=== PATIENT | male | born 1970 | race Caucasian/White ===

== ENCOUNTER 2019-08-02 06:24 | Inpatient (IN) | payer MEDICARE ==
[~2019-08-02] VITALS: Ht 180.3 cm; Wt 62.0 kg
[2019-08-02 07:28] LABS: Basophils # (auto) 0 10 ^3/uL (0-0.2); Eosinophils # (auto) 0 10 ^3/uL (0-0.8)
[2019-08-02] MEDS ORDERED: SODIUM CHLORIDE 0.9% 1,000 ML IV ONE ×2 (07:28)
[2019-08-02] MEDS ORDERED: ONDANSETRON HCL 4 MG/2 ML VIAL IV ONE ×2 (07:30→07:45)
[2019-08-02] MEDS ORDERED: PANTOPRAZOLE 40 MG/10 ML VIAL INJ IV ONE (07:30)
[2019-08-02 07:32] LABS: Basophils % (auto) 0.1 % (0.0-2.0); Lymphocytes # (auto) 0.5 10 ^3/uL (0.4-5.4); Lymphocytes % (auto) 2.6 % (10.0-50.0); Mean Corpuscular Hemoglobin 31.2 pg (28.0-32.0); Mean Corpuscular Hgb Conc. 34.2 g/dL (32.0-36.0); Mean Corpuscular Volume 91.2 fL (80.0-100.0); Monocytes # (auto) 0.9 10 ^3/uL (0-1.3); Monocytes % (auto) 4.8 % (0.0-12.0); Neutrophils # (auto) 17.7 10 ^3/uL (1.6-8.6); Neutrophils % (auto) 92.5 % (37.0-80.0); Nucleated Red Blood Cells % 1.4 %; Platelet Count (auto) 293 10^3/uL (140-450); Red Blood Cells 6.96 10^6/uL (4.5-5.90); Red Cell Distribution Width 12.6 % (11.8-14.3); White Blood Cell 19.1 10^3/uL (4.4-10.8)
[2019-08-02] MEDS ORDERED: ONDANSETRON HCL 4 MG/2 ML VIAL ONE (07:37)
[2019-08-02 07:41] LABS: Hematocrit 63.5 % (41.0-53.0)
[2019-08-02 07:43] LABS: Hemoglobin 21.7 g/dL (13.5-17.5)
[2019-08-02 07:48] LABS: Albumin 4.7 g/dL (3.4-5.0); Calcium 10.1 mg/dL (8.5-10.1); Potassium 3.3 mmol/L (3.5-5.1)
[2019-08-02 07:54] LABS: BUN/Creatinine Ratio 19.8; Bilirubin, Total 3.3 mg/dL (0.2-1.0); Total Protein 10.1 g/dL (6.4-8.2)
[2019-08-02] MEDS ORDERED: PIPERACILLIN-TAZOB 3.375GM 100 ML IV ONE (08:30)
[2019-08-02] MEDS ORDERED: SODIUM CHLORIDE 0.9% 2,200 ML IV ONE (08:45)
[2019-08-02 09:12] LABS: Lactic Acid w/Reflex 6.1 mmol/L (0.4-2.0)
[2019-08-02] MEDS ORDERED: ALBUTEROL SULF 2.5 MG/0.5ML(0.5%) NEB SOLN NEB ONE (09:15)
[2019-08-02] MEDS ORDERED: IPRATROPIUM BROM 0.5 MG/2.5ML INH SOL NEB ONE (09:15)
[2019-08-02] MEDS ORDERED: GASTROGRAFIN 120 ML SOL ONE (09:19)
[2019-08-02 11:39] LABS: Urine Bacteria NONE SEEN /hpf (None Seen); Urine Blood 1+ /uL (Negative); Urine Hyaline Cast MANY /lpf (0 - 2); Urine Mucus FEW (None Seen); Urine Specific Gravity 1.014 (1.001-1.035); Urine WBC 6 /hpf (0 - 3)
[2019-08-02] MEDS ORDERED: cefTRIAXone 1GM/50ML D5W 50 ML IV ONE (13:00)
[2019-08-02] MEDS ORDERED: ALBUTEROL SULF 2.5 MG/0.5ML(0.5%) NEB SOLN NEB PRN (13:00)
[2019-08-02] MEDS ORDERED: PROMETHAZINE HCL 25 MG/ML 1ML IV PRN (13:00)
[2019-08-02] MEDS ORDERED: MORPHINE SULF INJ 2 MG/ML SYRINGE 1ML IV PRN ×3 (13:00)
[2019-08-02] MEDS ORDERED: DEXTROSE (50%) 50ML SYRG IV PRN (13:00)
[2019-08-02] MEDS ORDERED: NITROGLYCERIN 0.4 MG SL TAB SL PRN (13:00)
[2019-08-02] MEDS ORDERED: OSELTAMIVIR 75 MG CAP PO ONE (13:00)
[2019-08-02] MEDS: SODIUM CHLORIDE 0.9% 1,000 ML IV SCH ×2 (14:10→22:48)
[2019-08-02] MEDS: FAMOTIDINE (10MG/ML) 2ML VL IV SCH (16:00)
[2019-08-02 16:11] LABS: Amylase 135 U/L (25-115); Lipase 265 U/L (73-393)
[2019-08-02 17:00] VITALS: BP 124/78
[2019-08-02] MEDS: metroNIDAZOLE 500MG/100ML 100 ML IV SCH ×2 (17:25→21:46)
[2019-08-02] MEDS: InsuLIN REG 1unit/0.01ml Soln (100units/ml) SC SCH (17:57)
[2019-08-02] MEDS: ACCU-CHEK COMFORT CURVE STRIP VI SCH (18:00)
[2019-08-02] MEDS: IPRATROPIUM BROM 0.5 MG/2.5ML INH SOL NEB SCH (18:51)
[2019-08-02] MEDS: ALBUTEROL SULF 2.5 MG/0.5ML(0.5%) NEB SOLN NEB SCH (18:51)
[2019-08-02 22:00] VITALS: BP 110/73
[2019-08-02] MEDS ORDERED: OSELTAMIVIR 30 MG CAP PO SCH (22:00)
[2019-08-03] MEDS: ACCU-CHEK COMFORT CURVE STRIP VI SCH ×4 (00:04→18:33)
[2019-08-03] MEDS: IPRATROPIUM BROM 0.5 MG/2.5ML INH SOL NEB SCH ×5 (00:38→18:37)
[2019-08-03] MEDS: ALBUTEROL SULF 2.5 MG/0.5ML(0.5%) NEB SOLN NEB SCH ×4 (00:38→18:37)
[2019-08-03 04:33] VITALS: BP 110/73
[2019-08-03 05:00] VITALS: BP 114/67
[2019-08-03] MEDS: InsuLIN REG 1unit/0.01ml Soln (100units/ml) SC SCH ×4 (06:00→18:00)
[2019-08-03 06:14] LABS: Basophils # (auto) 0 10 ^3/uL (0-0.2); Basophils % (auto) 0.2 % (0.0-2.0); Eosinophils # (auto) 0 10 ^3/uL (0-0.8); Hematocrit 50.3 % (41.0-53.0); Hemoglobin 17.3 g/dL (13.5-17.5); Lymphocytes # (auto) 0.7 10 ^3/uL (0.4-5.4); Lymphocytes % (auto) 4.9 % (10.0-50.0); Mean Corpuscular Hemoglobin 31.7 pg (28.0-32.0); Mean Corpuscular Hgb Conc. 34.3 g/dL (32.0-36.0); Mean Corpuscular Volume 92.3 fL (80.0-100.0); Monocytes # (auto) 0.8 10 ^3/uL (0-1.3); Monocytes % (auto) 5.2 % (0.0-12.0); Neutrophils # (auto) 13.4 10 ^3/uL (1.6-8.6); Neutrophils % (auto) 89.7 % (37.0-80.0); Nucleated Red Blood Cells % 0.2 %; Platelet Count (auto) 172 10^3/uL (140-450); Red Blood Cells 5.45 10^6/uL (4.5-5.90); Red Cell Distribution Width 12.5 % (11.8-14.3); White Blood Cell 14.9 10^3/uL (4.4-10.8)
[2019-08-03] MEDS: metroNIDAZOLE 500MG/100ML 100 ML IV SCH ×3 (06:15→21:57)
[2019-08-03 06:29] LABS: Albumin 3.2 g/dL (3.4-5.0); BUN/Creatinine Ratio 30.4; Calcium 8.8 mg/dL (8.5-10.1)
[2019-08-03 06:32] LABS: Bilirubin, Total 1.3 mg/dL (0.2-1.0); Total Protein 7.3 g/dL (6.4-8.2)
[2019-08-03 06:58] LABS: Potassium 2.8 mmol/L (3.5-5.1)
[2019-08-03] MEDS: cefTRIAXone 1GM/50ML D5W 50 ML IV SCH (08:50)
[2019-08-03] MEDS: SODIUM CHLORIDE 0.9% 1,000 ML IV SCH (08:54)
[2019-08-03 09:00] VITALS: BP 112/70
[2019-08-03] MEDS ORDERED: SODIUM CHLORIDE 0.9% 1,000 ML IV ONE (10:45)
[2019-08-03] MEDS: AZITHROMYCIN 500MG/ 250ML 250 ML IV SCH (10:52)
[2019-08-03] MEDS: POTASSIUM CHL 20MEQ/100ML 100 ML IV SCH ×3 (11:10→16:56)
[2019-08-03] MEDS: SOD CHL 0.45% 1,000 ML IV SCH ×2 (11:19→21:57)
[2019-08-03 13:00] VITALS: BP 138/72
[2019-08-03] MEDS: FAMOTIDINE (10MG/ML) 2ML VL IV SCH (13:09)
[2019-08-03] MEDS ORDERED: PANTOPRAZOLE 40 MG/10 ML VIAL INJ IV ONE (13:15)
[2019-08-03] MEDS ORDERED: THIAMINE HCL 100 MG TAB PO ONE (13:30)
[2019-08-03] MEDS ORDERED: MULTIPLE VITAMINS W/ MINERALS TAB PO ONE (13:30)
[2019-08-03 16:28] LABS: Alcohol, Urine < 3.0 mg/dL (0-5); Amphetamine Screen, Urine NEGATIVE (NEGATIVE); Barbiturate Scree,Urine NEGATIVE (NEGATIVE); Benzodiazephine Screen, Urine NEGATIVE (NEGATIVE); Cannabinoid Screen, Urine NEGATIVE (NEGATIVE); Cocaine Screen, Urine NEGATIVE (NEGATIVE); Opiate Scree,Urine NEGATIVE (NEGATIVE); Phencyclidine Screen, Urine NEGATIVE (NEGATIVE)
[2019-08-03 17:00] VITALS: BP 147/93
[2019-08-03 22:00] VITALS: BP 149/91
[2019-08-03] MEDS ORDERED: POTASSIUM CHL 20MEQ/100ML 100 ML IV ONE (22:30)
[2019-08-04] MEDS ORDERED: POTASSIUM CHL 20MEQ/100ML 100 ML IV ONE ×2 (00:30→07:30)
[2019-08-04 05:00] VITALS: BP 142/84
[2019-08-04] MEDS: IPRATROPIUM BROM 0.5 MG/2.5ML INH SOL NEB SCH ×4 (05:55→18:21)
[2019-08-04] MEDS: ALBUTEROL SULF 2.5 MG/0.5ML(0.5%) NEB SOLN NEB SCH ×4 (05:55→18:21)
[2019-08-04] MEDS: InsuLIN REG 1unit/0.01ml Soln (100units/ml) SC SCH ×4 (06:00→18:00)
[2019-08-04 06:21] LABS: Basophils # (auto) 0 10 ^3/uL (0-0.2); Basophils % (auto) 0.3 % (0.0-2.0); Eosinophils # (auto) 0 10 ^3/uL (0-0.8); Eosinophils % (auto) 0.2 % (0.0-7.0); Hematocrit 40.5 % (41.0-53.0); Hemoglobin 14.3 g/dL (13.5-17.5); Lymphocytes # (auto) 0.8 10 ^3/uL (0.4-5.4); Mean Corpuscular Hgb Conc. 35.3 g/dL (32.0-36.0); Mean Corpuscular Volume 90.7 fL (80.0-100.0); Monocytes # (auto) 0.6 10 ^3/uL (0-1.3); Monocytes % (auto) 6.7 % (0.0-12.0); Neutrophils # (auto) 7.4 10 ^3/uL (1.6-8.6); Neutrophils % (auto) 83.8 % (37.0-80.0); Nucleated Red Blood Cells % 0.1 %; Platelet Count (auto) 116 10^3/uL (140-450); Red Blood Cells 4.47 10^6/uL (4.5-5.90); Red Cell Distribution Width 12.5 % (11.8-14.3); White Blood Cell 8.8 10^3/uL (4.4-10.8)
[2019-08-04] MEDS: metroNIDAZOLE 500MG/100ML 100 ML IV SCH ×3 (06:32→22:30)
[2019-08-04 06:38] LABS: Magnesium 2.7 mg/dL (1.6-2.6)
[2019-08-04 06:45] LABS: BUN/Creatinine Ratio 27.8; Bilirubin, Total 1.1 mg/dL (0.2-1.0); Calcium 8.5 mg/dL (8.5-10.1); Total Protein 6.2 g/dL (6.4-8.2)
[2019-08-04 06:48] LABS: Potassium 2.7 mmol/L (3.5-5.1)
[2019-08-04] MEDS: ACCU-CHEK COMFORT CURVE STRIP VI SCH ×4 (06:48→18:48)
[2019-08-04] MEDS: SOD CHL 0.45% 1,000 ML IV SCH (08:13)
[2019-08-04 09:51] VITALS: BP 144/88
[2019-08-04] MEDS: cefTRIAXone 1GM/50ML D5W 50 ML IV SCH (09:59)
[2019-08-04] MEDS: MULTIPLE VITAMINS W/ MINERALS TAB PO SCH (10:00)
[2019-08-04] MEDS: PANTOPRAZOLE 40 MG/10 ML VIAL INJ IV SCH (10:00)
[2019-08-04] MEDS: THIAMINE HCL 100 MG TAB PO SCH (10:01)
[2019-08-04] MEDS: AZITHROMYCIN 500MG/ 250ML 250 ML IV SCH (10:56)
[2019-08-04] MEDS ORDERED: MIDAZOLAM HCL 5 MG/ML-1ML VIAL ONE (11:12)
[2019-08-04] MEDS ORDERED: SODIUM CHLORIDE LOCK 0 ML ONE (11:12)
[2019-08-04] MEDS ORDERED: LIDOCAINE VISCOUS 2% 15ML UD ONE (11:12)
[2019-08-04] MEDS ORDERED: fentaNYL CITRATE 100 MCG/2 ML VL ONE (11:12)
[2019-08-04] MEDS ORDERED: diphenhdrAMINE HCL 50 MG/1 ML VL ONE (11:13)
[2019-08-04] MEDS ORDERED: SOD CHL 0.45% 1,000 ML IV SCH (11:30)
[2019-08-04 11:45] LABS: INR 1.18 (0.9-1.15); Partial Thromboplastin Time 31.2 sec (23.64-32.05)
[2019-08-04 13:00] VITALS: BP 141/77
[2019-08-04 13:52] LABS: BUN/Creatinine Ratio 22.4; Calcium 8.3 mg/dL (8.5-10.1)
[2019-08-04 13:55] LABS: Potassium 2.8 mmol/L (3.5-5.1)
[2019-08-04] MEDS ORDERED: POTASSIUM CHLORIDE 20 MEQ in SOD CHL 0.45% 1,000 ML IV SCH (14:30)
[2019-08-04] MEDS: SOD CHL 0.45% WITH 20MEQ KCL 1,000 ML IV SCH (16:15)
[2019-08-04] MEDS: POTASSIUM CHL 20MEQ/100ML 100 ML IV SCH ×2 (16:16→18:47)
[2019-08-04 17:45] VITALS: BP 137/77
[2019-08-04 22:00] VITALS: BP 136/85
[2019-08-05] MEDS: ALBUTEROL SULF 2.5 MG/0.5ML(0.5%) NEB SOLN NEB SCH ×4 (00:22→19:40)
[2019-08-05] MEDS: IPRATROPIUM BROM 0.5 MG/2.5ML INH SOL NEB SCH ×4 (00:22→19:40)
[2019-08-05] MEDS: metroNIDAZOLE 500MG/100ML 100 ML IV SCH ×3 (05:39→21:58)
[2019-08-05 05:49] VITALS: BP 149/91
[2019-08-05] MEDS: InsuLIN REG 1unit/0.01ml Soln (100units/ml) SC SCH ×5 (06:00→23:36)
[2019-08-05] MEDS: ACCU-CHEK COMFORT CURVE STRIP VI SCH ×5 (06:07→23:36)
[2019-08-05 07:31] LABS: Basophils # (auto) 0 10 ^3/uL (0-0.2); Basophils % (auto) 0.1 % (0.0-2.0); Eosinophils # (auto) 0.1 10 ^3/uL (0-0.8); Eosinophils % (auto) 1.1 % (0.0-7.0); Hematocrit 37.6 % (41.0-53.0); Hemoglobin 13.4 g/dL (13.5-17.5); Lymphocytes # (auto) 1.2 10 ^3/uL (0.4-5.4); Lymphocytes % (auto) 14.7 % (10.0-50.0); Mean Corpuscular Hemoglobin 32.5 pg (28.0-32.0); Mean Corpuscular Hgb Conc. 35.6 g/dL (32.0-36.0); Mean Corpuscular Volume 91.2 fL (80.0-100.0); Monocytes # (auto) 0.7 10 ^3/uL (0-1.3); Monocytes % (auto) 8.3 % (0.0-12.0); Neutrophils # (auto) 6.1 10 ^3/uL (1.6-8.6); Neutrophils % (auto) 75.8 % (37.0-80.0); Platelet Count (auto) 134 10^3/uL (140-450); Red Blood Cells 4.12 10^6/uL (4.5-5.90); Red Cell Distribution Width 12.3 % (11.8-14.3)
[2019-08-05 07:52] LABS: Calcium 8.3 mg/dL (8.5-10.1); Potassium 3.8 mmol/L (3.5-5.1)
[2019-08-05 07:55] LABS: BUN/Creatinine Ratio 17.9
[2019-08-05 08:49] LABS: Hepatitis B Surface Antibody Negative
[2019-08-05 09:00] VITALS: BP 148/96
[2019-08-05 09:14] LABS: Hepatitis A Total Antibody Negative
[2019-08-05] MEDS: PANTOPRAZOLE 40 MG/10 ML VIAL INJ IV SCH (09:55)
[2019-08-05] MEDS: THIAMINE HCL 100 MG TAB PO SCH ×2 (09:55→10:00)
[2019-08-05] MEDS: cefTRIAXone 1GM/50ML D5W 50 ML IV SCH (09:55)
[2019-08-05] MEDS: MULTIPLE VITAMINS W/ MINERALS TAB PO SCH ×2 (09:55→10:00)
[2019-08-05 10:10] LABS: Hepatitis B Core Total AB Negative; Hepatitis B Surface Antigen Negative (Negative); Hepatitis C Antibody Negative (Negative)
[2019-08-05] MEDS: AZITHROMYCIN 500MG/ 250ML 250 ML IV SCH (10:43)
[2019-08-05] MEDS ORDERED: SUCCINYLCHOLINE CHLORIDE 20 MG/ML 10ML VIAL IV ONE (12:49)
[2019-08-05] MEDS ORDERED: LIDOCAINE 1% HCL (LOCAL ANESTH.) INJ 20ML MDV ONE (12:49)
[2019-08-05] MEDS ORDERED: METOCLOPRAMIDE HCL 5MG/ml INJ 2ml VIAL ONE (12:59)
[2019-08-05] MEDS ORDERED: diphenhdrAMINE HCL 50 MG/1 ML VL ONE (12:59)
[2019-08-05] MEDS ORDERED: MIDAZOLAM HCL 1MG/1ML-2 ML VIAL ONE ×2 (12:59)
[2019-08-05] MEDS ORDERED: KETAMINE HCL 10 ML ONE (13:01)
[2019-08-05] MEDS ORDERED: GLYCOPYRROLATE 0.2 MG/ML 1ML VIAL ONE (13:01)
[2019-08-05] MEDS ORDERED: PROPOFOL 10 MG/ML 20 ML IV ONE (13:03)
[2019-08-05 14:44] VITALS: BP 138/90
[2019-08-05] MEDS: SOD CHL 0.45% WITH 20MEQ KCL 1,000 ML IV SCH ×2 (15:57→15:58)
[2019-08-05 17:00] VITALS: BP 144/99
[2019-08-05 22:00] VITALS: BP 150/88
[2019-08-05] MEDS ORDERED: CLINIMIX PER PHARMACY 0 ML IV SCH (22:00)
[2019-08-05] MEDS: AMINO ACID INFUSION IN D5W 1,000 ML IV NR (22:41)
[2019-08-06] VITALS (7 sets, daily range): BP systolic 133–148; BP diastolic 87–99
[2019-08-06] MEDS: IPRATROPIUM BROM 0.5 MG/2.5ML INH SOL NEB SCH ×4 (00:13→18:40)
[2019-08-06] MEDS: ALBUTEROL SULF 2.5 MG/0.5ML(0.5%) NEB SOLN NEB SCH ×4 (00:14→18:40)
[2019-08-06] MEDS: SOD CHL 0.45% WITH 20MEQ KCL 1,000 ML IV SCH ×2 (02:31→13:49)
[2019-08-06] MEDS: InsuLIN REG 1unit/0.01ml Soln (100units/ml) SC SCH ×3 (06:00→18:00)
[2019-08-06] MEDS: metroNIDAZOLE 500MG/100ML 100 ML IV SCH (06:11)
[2019-08-06] MEDS: ACCU-CHEK COMFORT CURVE STRIP VI SCH ×3 (06:11→18:26)
[2019-08-06 07:34] LABS: Albumin 2.8 g/dL (3.4-5.0); Basophils # (auto) 0 10 ^3/uL (0-0.2); Calcium 8.3 mg/dL (8.5-10.1); Eosinophils # (auto) 0.1 10 ^3/uL (0-0.8); Eosinophils % (auto) 1.5 % (0.0-7.0); Hematocrit 38.6 % (41.0-53.0); Hemoglobin 13.5 g/dL (13.5-17.5); Lymphocytes # (auto) 1.2 10 ^3/uL (0.4-5.4); Lymphocytes % (auto) 16.3 % (10.0-50.0); Magnesium 2.1 mg/dL (1.6-2.6); Mean Corpuscular Hemoglobin 31.4 pg (28.0-32.0); Mean Corpuscular Hgb Conc. 35.1 g/dL (32.0-36.0); Mean Corpuscular Volume 89.6 fL (80.0-100.0); Monocytes # (auto) 0.6 10 ^3/uL (0-1.3); Monocytes % (auto) 8.8 % (0.0-12.0); Neutrophils # (auto) 5.3 10 ^3/uL (1.6-8.6); Neutrophils % (auto) 73.4 % (37.0-80.0); Platelet Count (auto) 158 10^3/uL (140-450); Potassium 3.2 mmol/L (3.5-5.1); Red Blood Cells 4.31 10^6/uL (4.5-5.90); Red Cell Distribution Width 12.2 % (11.8-14.3); White Blood Cell 7.2 10^3/uL (4.4-10.8)
[2019-08-06 07:39] LABS: BUN/Creatinine Ratio 19.1; Bilirubin, Total 0.7 mg/dL (0.2-1.0); Phosphorus 1.1 mg/dL (2.5-4.90); Pre Albumin 13.5 mg/dL (20.0-40.0); Total Protein 6.2 g/dL (6.4-8.2)
[2019-08-06] MEDS: cefTRIAXone 1GM/50ML D5W 50 ML IV SCH (08:15)
[2019-08-06] MEDS: MULTIPLE VITAMINS W/ MINERALS TAB PO SCH (10:00)
[2019-08-06] MEDS ORDERED: POTASSIUM PHOSPHATE 44 MEQ in D5W 5% 250 ML IV ONE (10:00)
[2019-08-06] MEDS: THIAMINE HCL 100 MG TAB PO SCH (10:00)
[2019-08-06] MEDS: PANTOPRAZOLE 40 MG/10 ML VIAL INJ IV SCH ×2 (10:02→21:42)
[2019-08-06] MEDS: AZITHROMYCIN 500MG/ 250ML 250 ML IV SCH (10:02)
[2019-08-06] MEDS: THIAMINE 100mg/ml INJ (200mg/2ml VIAL) IV SCH (13:49)
[2019-08-06] MEDS: AMINO ACID INFUSION IN D5W 1,000 ML IV NR (18:26)
[2019-08-06] MEDS ORDERED: AMINO ACID INFUSION IN D5W 1,000 ML IV NR (20:00)
[2019-08-07] MEDS: ACCU-CHEK COMFORT CURVE STRIP VI SCH ×3 (00:02→11:46)
[2019-08-07] MEDS: ALBUTEROL SULF 2.5 MG/0.5ML(0.5%) NEB SOLN NEB SCH ×3 (00:44→11:32)
[2019-08-07] MEDS: IPRATROPIUM BROM 0.5 MG/2.5ML INH SOL NEB SCH ×3 (00:44→11:32)
[2019-08-07] MEDS: SOD CHL 0.45% WITH 20MEQ KCL 1,000 ML IV SCH (04:25)
[2019-08-07 05:14] VITALS: BP 140/93
[2019-08-07] MEDS: InsuLIN REG 1unit/0.01ml Soln (100units/ml) SC SCH ×3 (05:46→11:46)
[2019-08-07 06:40] LABS: Phosphorus 2.2 mg/dL (2.5-4.90)
[2019-08-07 06:44] LABS: Calcium 8.3 mg/dL (8.5-10.1); Potassium 3.3 mmol/L (3.5-5.1)
[2019-08-07 06:49] LABS: BUN/Creatinine Ratio 16.2; Bilirubin, Total 0.5 mg/dL (0.2-1.0); Total Protein 6.6 g/dL (6.4-8.2)
[2019-08-07] MEDS: cefTRIAXone 1GM/50ML D5W 50 ML IV SCH (08:40)
[2019-08-07 08:49] VITALS: BP 137/83
[2019-08-07] MEDS: PANTOPRAZOLE 40 MG/10 ML VIAL INJ IV SCH (09:55)
[2019-08-07] MEDS: THIAMINE 100mg/ml INJ (200mg/2ml VIAL) IV SCH (09:56)
[2019-08-07] MEDS: AZITHROMYCIN 500MG/ 250ML 250 ML IV SCH (09:59)
[2019-08-07] MEDS ORDERED: PPN PER PHARMACY 0 ML IV SCH (11:00)
[2019-08-07] MEDS ORDERED: POTASSIUM PHOSPHATE 44 MEQ in D5W 5% 250 ML IV ONE (11:00)
[2019-08-07 13:00] VITALS: BP 143/87
[2019-08-07] MEDS ORDERED: POTASSIUM CHL 20 Meq TABLET PO ONE (14:00)
[2019-08-07] MEDS ORDERED: PPN PER PHARMACY IV NR ×8 (20:00)
== END 2019-08-07 15:20 | disposition left against medical advice (07) | DRG 871 ==
LOC: EDBD 06:24 → ER 06:24 → TELE 06:25 → TELE-EAST 16:20
PROVIDERS: ADMIT Internal Medicine; ATTEND Internal Medicine
PROC: 0DB88ZX Excision of Small Intestine, Via Natural or Artificial Opening Endoscopic, Diagnostic (ICD-10-PCS; 2019-08-05)
PROC: 0DB58ZX Excision of Esophagus, Via Natural or Artificial Opening Endoscopic, Diagnostic (ICD-10-PCS; 2019-08-05)
PROC: 0DB68ZX Excision of Stomach, Via Natural or Artificial Opening Endoscopic, Diagnostic (ICD-10-PCS; principal; 2019-08-05 12:56)
DX: A41.9 Sepsis, unspecified organism (principal); K85.90 Acute pancreatitis without necrosis or infection, unspecified; N17.0 Acute kidney failure with tubular necrosis; K56.2 Volvulus; J69.0 Pneumonitis due to inhalation of food and vomit; K56.609 Unspecified intestinal obstruction, unspecified as to partial versus complete obstruction; E87.0 Hyperosmolality and hypernatremia; E86.0 Dehydration; E87.6 Hypokalemia; E11.65 Type 2 diabetes mellitus with hyperglycemia; K21.9 Gastro-esophageal reflux disease without esophagitis; J45.909 Unspecified asthma, uncomplicated; K29.20 Alcoholic gastritis without bleeding; K44.9 Diaphragmatic hernia without obstruction or gangrene; K20.9 Esophagitis, unspecified; Z79.899 Other long term (current) drug therapy
CPT/HCPCS: 36415; 36600; 43239; 71045; 71046; 71250; 74176; 74250; 76705; 78226; 80048; 80053; 80061; 80307; 81001; 82040; 82150; 82270; 82805; 82962; 83036; 83605; 83690; 83735; 83880; 84100; 84132; 84443; 84478; 85025; 85610; 85730; 86141; 86704; 86706; 86708; 86803; 87040; 87086; 87340; 87804; 94640; 96361; 96365; 96375; 97163; 99291; C9113; G0378; G9035; J0330; J0696; J2001; J2250; J2405; J2543; J2704; J3480; J3490; J7060